=== PATIENT | male | born 2000 | race Caucasian/White ===

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

== ENCOUNTER 2022-06-10 02:15 | Inpatient (IN) | payer OTHER ==
[~2022-06-10] VITALS: Ht 188 cm; Wt 72.0 kg
[2022-06-10] MEDS ORDERED: SODIUM CHLORIDE 0.9% 1,000 ML IV ONE (03:15)
[2022-06-10] MEDS ORDERED: LACTATED RINGER'S 2,000 ML IV ONE (03:15)
[2022-06-10 03:24] LABS: Mean Corpuscular Volume 98.7 fL (80.0-100.0)
[2022-06-10 03:26] LABS: Hematocrit 56.7 % (41.0-53.0); Hemoglobin 17.1 g/dL (13.5-17.5); Mean Corpuscular Hemoglobin 29.8 pg (28.0-32.0); Mean Corpuscular Hgb Conc. 30.2 g/dL (32.0-36.0); Red Blood Cells 5.74 10^6/uL (4.5-5.90); Red Cell Distribution Width 14.3 % (11.8-14.3)
[2022-06-10 03:29] LABS: White Blood Cell 41.2 10^3/uL (4.4-10.8)
[2022-06-10 03:30] LABS: Basophils % (manual) 0 (0.0-2.0); Blast Cells 0; Promyelocytes % 0; Reactive Lymphocytes 0
[2022-06-10] MEDS ORDERED: ONDANSETRON HCL 4 MG/2 ML VIAL IV ONE (03:30)
[2022-06-10] MEDS ORDERED: MORPHINE SULFATE 4 MG/ML SYR/VIAL IV ONE (03:30)
[2022-06-10 03:41] LABS: Albumin 4.8 g/dL (3.4-5.0); Calcium 9.4 mg/dL (8.5-10.1)
[2022-06-10 03:43] LABS: Bilirubin, Total 1.5 mg/dL (0.2-1.0); Total Protein 8.9 g/dL (6.4-8.2)
[2022-06-10 03:44] LABS: BUN/Creatinine Ratio 15.1; Potassium 6.1 mmol/L (3.5-5.1)
[2022-06-10 03:52] LABS: Band Neutrophils % (manual) 15; Eosinophils % (manual) 1 (0-7); Lymphocytes % (manual) 11 (10.0-50.0); Metamyelocytes % 1; Monocytes % (manual) 2 (0-12); Myelocytes % 4
[2022-06-10] MEDS ORDERED: InsuLIN REG 1unit/0.01ml Soln (100units/ml) ONE (04:04)
[2022-06-10] MEDS ORDERED: SODIUM BICARBONATE 8.4 % INJ 50ML VIAL IV ONE ×3 (04:15→09:15)
[2022-06-10] MEDS ORDERED: InsuLIN REG 1unit/0.01ml Soln (100units/ml) IV ONE (04:15)
[2022-06-10] MEDS ORDERED: INSULIN LANTUS (GLARGINE) 1 /0.01ml (100units/ml) SC ONE (04:15)
[2022-06-10] MEDS ORDERED: InsuLIN R (HUMAN) 100 UNITS in SODIUM CHL 0.9% 99 ML IV SCH ×2 (04:15→07:45)
[2022-06-10] MEDS ORDERED: DEXTROSE (50%) 50ML SYRG IV PRN ×3 (04:15→20:30)
[2022-06-10 04:23] LABS: Urine Bacteria NONE SEEN /hpf (None Seen); Urine Blood Negative /uL (Negative); Urine Mucus FEW (None Seen); Urine Specific Gravity 1.023 (1.001-1.035); Urine WBC <1 /hpf (0 - 3)
[2022-06-10] MEDS ORDERED: ACCU-CHEK COMFORT CURVE STRIP VI SCH (04:30)
[2022-06-10] MEDS ORDERED: CALCIUM GLUC 1,000mg/50ml-NS 50 ML IV ONE (04:45)
[2022-06-10] MEDS ORDERED: ONDANSETRON HCL 4 MG/2 ML VIAL IV PRN (05:15)
[2022-06-10] MEDS ORDERED: SODIUM CHLORIDE 0.9% 1,000 ML IV SCH (05:15)
[2022-06-10] MEDS ORDERED: DOCUSATE SOD 100 MG CAP PO PRN (05:15)
[2022-06-10] MEDS ORDERED: HYDROcodone-ACET 5/325MG TAB PO PRN (05:15)
[2022-06-10] MEDS: SODIUM CHLORIDE 0.9% 1,000 ML IV SCH ×2 (05:45→07:49)
[2022-06-10] MEDS: ACCU-CHEK COMFORT CURVE STRIP VI SCH ×11 (06:04→22:15)
[2022-06-10 06:27] LABS: BUN/Creatinine Ratio 16.8; Calcium 9.2 mg/dL (8.5-10.1)
[2022-06-10] MEDS ORDERED: NITROGLYCERIN 0.4 MG SL TAB SL PRN (07:00)
[2022-06-10] MEDS ORDERED: MORPHINE SULFATE INJ 2 MG/ml SYRG IV PRN (07:00)
[2022-06-10] MEDS ORDERED: cefTRIAXone 1GM/50ML D5W 50 ML IV ONE (07:15)
[2022-06-10 07:21] LABS: Potassium 5.7 mmol/L (3.5-5.1)
[2022-06-10] MEDS ORDERED: SODIUM ZIRCONIUM CYCL 10 GM PAK PO ONE (07:30)
[2022-06-10] MEDS ORDERED: SODIUM BICARBONATE 50ML VIAL 75 ML in SOD CHL 0.45% 1,000 ML IV SCH (07:45)
[2022-06-10 08:33] LABS: Cholesterol 189 mg/dL (< 200); Triglycerides 147 mg/dL (< 150)
[2022-06-10 08:34] LABS: HDL Cholesterol 58 mg/dL (40-59); LDL Cholesterol 115 mg/dL (< 100)
[2022-06-10] MEDS: ASPirin 81 mg TAB PO SCH (10:00)
[2022-06-10 11:23] LABS: Urine Bacteria NONE SEEN /hpf (None Seen); Urine Blood Negative /uL (Negative); Urine Specific Gravity 1.022 (1.001-1.035); Urine WBC <1 /hpf (0 - 3)
[2022-06-10 11:27] LABS: Calcium 8.3 mg/dL (8.5-10.1); Potassium 4.3 mmol/L (3.5-5.1)
[2022-06-10 11:31] LABS: BUN/Creatinine Ratio 15.2
[2022-06-10] MEDS: ACETAMINOPHEN 325 MG TAB PO PRN (14:28)
[2022-06-10] MEDS ORDERED: D5W/SOD CHL 0.45% 1,000 ML IV SCH (15:30)
[2022-06-10 17:58] LABS: BUN/Creatinine Ratio 16.7; Calcium 7.9 mg/dL (8.5-10.1); Potassium 3.7 mmol/L (3.5-5.1)
[2022-06-10] MEDS ORDERED: POTASSIUM EFFERVESENT TAB 25 MEQ PO ONE (19:15)
[2022-06-10] MEDS ORDERED: DEXTROSE (50%) 50ML SYRG IV ONE (20:15)
[2022-06-10] MEDS: InsuLIN REG 1unit/0.01ml Soln (100units/ml) SC SCH (22:16)
[2022-06-10 23:00] LABS: BUN/Creatinine Ratio 15.8; Calcium 7.9 mg/dL (8.5-10.1)
[2022-06-11] MEDS: ACCU-CHEK COMFORT CURVE STRIP VI SCH ×6 (02:36→22:46)
[2022-06-11] MEDS: InsuLIN REG 1unit/0.01ml Soln (100units/ml) SC SCH ×6 (02:37→22:00)
[2022-06-11 06:03] LABS: Calcium 8.2 mg/dL (8.5-10.1); Potassium 3.6 mmol/L (3.5-5.1)
[2022-06-11 06:08] LABS: Albumin 3.4 g/dL (3.4-5.0); BUN/Creatinine Ratio 12.4; Bilirubin, Total 1.4 mg/dL (0.2-1.0); Total Protein 5.8 g/dL (6.4-8.2)
[2022-06-11 07:33] LABS: Basophils # (auto) 0 10 ^3/uL (0-0.2); Basophils % (auto) 0.4 % (0.0-2.0); Eosinophils # (auto) 0.1 10 ^3/uL (0-0.8); Eosinophils % (auto) 0.6 % (0.0-7.0); Hematocrit 39.9 % (41.0-53.0); Hemoglobin 13.5 g/dL (13.5-17.5); Lymphocytes % (auto) 18.4 % (10.0-50.0); Mean Corpuscular Hemoglobin 30.7 pg (28.0-32.0); Mean Corpuscular Hgb Conc. 33.8 g/dL (32.0-36.0); Mean Corpuscular Volume 90.8 fL (80.0-100.0); Monocytes # (auto) 0.5 10 ^3/uL (0-1.3); Monocytes % (auto) 4.6 % (0.0-12.0); Neutrophils # (auto) 8.2 10 ^3/uL (1.6-8.6); Nucleated Red Blood Cells % 0.2 %; Red Cell Distribution Width 13.4 % (11.8-14.3); White Blood Cell 10.8 10^3/uL (4.4-10.8)
[2022-06-11] MEDS: cefTRIAXone 1GM/50ML D5W 50 ML IV SCH ×2 (09:00→09:06)
[2022-06-11] MEDS: ASPirin 81 mg TAB PO SCH (09:57)
[2022-06-11] MEDS: INSULIN LANTUS (GLARGINE) 1 /0.01ml (100units/ml) SC SCH (10:00)
[2022-06-11 13:00] VITALS: BP 126/71
[2022-06-11 17:00] VITALS: BP 97/54
[2022-06-11] MEDS: ACETAMINOPHEN 325 MG TAB PO PRN (19:04)
[2022-06-11 20:00] VITALS: BP 99/54
[2022-06-11 22:00] VITALS: BP 99/54
[2022-06-12] MEDS: ACCU-CHEK COMFORT CURVE STRIP VI SCH ×3 (01:57→10:00)
[2022-06-12] MEDS: InsuLIN REG 1unit/0.01ml Soln (100units/ml) SC SCH ×3 (01:57→10:00)
[2022-06-12 05:00] VITALS: BP 118/79
[2022-06-12 09:00] VITALS: BP 121/77
[2022-06-12] MEDS: cefTRIAXone 1GM/50ML D5W 50 ML IV SCH (09:00)
[2022-06-12] MEDS: INSULIN LANTUS (GLARGINE) 1 /0.01ml (100units/ml) SC SCH (10:00)
[2022-06-12] MEDS: ASPirin 81 mg TAB PO SCH (10:00)
[2022-06-12 10:43] VITALS: BP 121/77
== END 2022-06-12 11:20 | disposition home or self-care (01) | DRG 638 ==
LOC: ER 02:15 → EDUNIT# 02:15 → EDBD 02:15 → TELE 06:54 → WEST WING 06-11 12:41
PROVIDERS: ADMIT Nurse Practitioner Family; ATTEND Internal Medicine
DX: E10.10 Type 1 diabetes mellitus with ketoacidosis without coma (principal); E87.1 Hypo-osmolality and hyponatremia; N17.9 Acute kidney failure, unspecified; D72.829 Elevated white blood cell count, unspecified; D75.839 Thrombocytosis, unspecified; Z20.822 Contact with and (suspected) exposure to COVID-19; E87.5 Hyperkalemia; I10 Essential (primary) hypertension; Z79.4 Long term (current) use of insulin
CPT/HCPCS: 36415; 36600; 71045; 80048; 80053; 80061; 81001; 82010; 82805; 82962; 83036; 83605; 84132; 85007; 85027; 87040; 87426; 87804; 93005; 96361; 96365; 96375; G0378; J0696; J1815; J2405

== ENCOUNTER 2023-03-27 02:50 | Inpatient (IN) | payer OTHER ==
[~2023-03-27] VITALS: Ht 188 cm; Wt 73.1 kg
[2023-03-27] MEDS ORDERED: SODIUM CHLORIDE 0.9% 3,000 ML IV ONE (03:45)
[2023-03-27 04:24] LABS: Hematocrit 55.8 % (41.0-53.0); Hemoglobin 17.6 g/dL (13.5-17.5); Mean Corpuscular Hemoglobin 30.2 pg (28.0-32.0); Mean Corpuscular Hgb Conc. 31.6 g/dL (32.0-36.0); Mean Corpuscular Volume 95.7 fL (80.0-100.0); Red Blood Cells 5.83 10^6/uL (4.5-5.90); Red Cell Distribution Width 13.5 % (11.8-14.3)
[2023-03-27 04:35] LABS: Basophils % (manual) 0 (0.0-2.0); Blast Cells 0; Eosinophils % (manual) 0 (0-7); Metamyelocytes % 0; Promyelocytes % 0; Reactive Lymphocytes 0
[2023-03-27 04:41] LABS: Alanine Aminotransferase 24 U/L (7-40); Albumin 5.8 g/dL (3.2-4.8); Alkaline Phosphatase 190 U/L (46-116); Anion Gap 23.00001 (5-15); Aspartate Aminotransferase 22 U/L (13-40); BUN/Creatinine Ratio 6.2 (10.0-20.0); Blood Urea Nitrogen 13 mg/dL (9-23); Calcium 9.5 mg/dL (8.7-10.4); Chloride 91 mmol/L (98-107); Lipase 24 U/L (12-53); Magnesium 2.7 mg/dL (1.6-2.6); Potassium 5.5 mmol/L (3.5-5.1); Sodium 124 mmol/L (136-145)
[2023-03-27 04:42] LABS: Bilirubin, Total 1.3 mg/dL (0.2-1.0); Total Protein 9.1 g/dL (5.7-8.2)
[2023-03-27] MEDS ORDERED: HYDROmorphone HCL 2 MG/ML VL/or syr IV ONE (04:45)
[2023-03-27] MEDS ORDERED: ONDANSETRON HCL 4 MG/2 ML VIAL IV ONE (04:45)
[2023-03-27 05:07] LABS: Carbon Dioxide < 10 mmol/L (20-30); Glucose 602 mg/dL (74-106)
[2023-03-27] MEDS ORDERED: INSULIN DRIP 100 UNIT/100ML 100 ML IV SCH ×3 (05:15→10:00)
[2023-03-27] MEDS ORDERED: SODIUM BICARBONATE 8.4 % INJ 50ML VIAL IV ONE ×2 (05:15→05:45)
[2023-03-27] MEDS ORDERED: INSULIN LANTUS (GLARGINE) 1 /0.01ml (100units/ml) SC ONE ×3 (05:15→10:00)
[2023-03-27] MEDS ORDERED: DEXTROSE (50%) 50ML SYRG IV PRN ×3 (05:15→10:00)
[2023-03-27 05:20] LABS: Band Neutrophils % (manual) 8; Lymphocytes % (manual) 10 (10.0-50.0); Monocytes % (manual) 5 (0-12); Myelocytes % 2
[2023-03-27 05:21] LABS: Platelet Estimate Increased; RBC Morphology Normal
[2023-03-27 05:30] VITALS: PULSE 116; RESP 33; O2SAT 100
[2023-03-27] MEDS ORDERED: CALCIUM GLUC 1,000mg/50ml-NS 50 ML IV ONE (05:45)
[2023-03-27] MEDS ORDERED: InsuLIN REG 1unit/0.01ml Soln (100units/ml) IV ONE (05:45)
[2023-03-27] MEDS: ACCU-CHEK COMFORT CURVE STRIP VI SCH ×12 (06:17→22:21)
[2023-03-27 06:52] LABS: Urine Bacteria NONE SEEN /hpf (None Seen); Urine Blood TRACE /uL (Negative); Urine Clarity Clear (Clear); Urine Protein, UAD TRACE (Negative); Urine Specific Gravity 1.022 (1.001-1.035); Urine Urobilinogen Normal (Negative); Urine WBC <1 /hpf (0 - 3)
[2023-03-27 06:55] LABS: Urine Color Straw (Yellow)
[2023-03-27] MEDS ORDERED: POTASSIUM CHL 20MEQ/100ML 200 ML IV PRN (08:00)
[2023-03-27] MEDS ORDERED: METOCLOPRAMIDE HCL 5MG/ml INJ 2ml VIAL IV PRN (08:15)
[2023-03-27] MEDS ORDERED: ACETAMINOPHEN 325 MG TAB PO PRN (08:15)
[2023-03-27] MEDS ORDERED: NITROGLYCERIN 0.4 MG SL TAB SL PRN (08:15)
[2023-03-27] MEDS ORDERED: MORPHINE SULFATE INJ 2 MG/ml SYRG IV PRN ×2 (08:15)
[2023-03-27 08:34] LABS: Chloride 103 mmol/L (98-107); Potassium 4.7 mmol/L (3.5-5.1)
[2023-03-27 08:35] LABS: Anion Gap 17 (5-15); Carbon Dioxide 13 mmol/L (20-30)
[2023-03-27 08:36] LABS: Calcium 8.8 mg/dL (8.5-10.1)
[2023-03-27 08:40] LABS: BUN/Creatinine Ratio 9.4 (10.0-20.0); Blood Urea Nitrogen 13 mg/dL (9-23)
[2023-03-27 08:42] LABS: Glucose 281 mg/dL (74-106); Sodium 133 mmol/L (136-145)
[2023-03-27] MEDS: SODIUM CHLORIDE 0.9% 1,000 ML IV SCH ×4 (09:32→20:40)
[2023-03-27] MEDS: levoFLOXacin 750MG 150 ML IV SCH (09:32)
[2023-03-27 09:41] VITALS: PULSE 102; RESP 20; O2SAT 98
[2023-03-27] MEDS ORDERED: SODIUM CHLORIDE 0.9% 1,000 ML IV SCH ×4 (10:00→16:00)
[2023-03-27] MEDS ORDERED: ACCU-CHEK COMFORT CURVE STRIP VI SCH (10:30)
[2023-03-27 10:56] LABS: Base Excess -13.1 mmol/L (-2.0-2.0)
[2023-03-27 11:07] LABS: Hemoglobin 15.9 g/dL (13.5-17.5); Mean Corpuscular Hgb Conc. 33.1 g/dL (32.0-36.0); Mean Corpuscular Volume 90.9 fL (80.0-100.0); Red Blood Cells 5.28 10^6/uL (4.5-5.90); Red Cell Distribution Width 12.8 % (11.8-14.3); White Blood Cell 25.6 10^3/uL (4.4-10.8)
[2023-03-27 11:11] LABS: Basophils % (manual) 0 (0.0-2.0); Blast Cells 0; Eosinophils % (manual) 0 (0-7); Metamyelocytes % 0; Myelocytes % 0; Promyelocytes % 0; Reactive Lymphocytes 0
[2023-03-27 11:20] LABS: Amphetamine Screen, Urine Neg (NEGATIVE); Barbiturate Scree,Urine Neg (NEGATIVE); Benzodiazephine Screen, Urine Neg (NEGATIVE); Cannabinoid Screen, Urine Pos (NEGATIVE); Cocaine Screen, Urine Neg (NEGATIVE); Opiate Scree,Urine Neg (NEGATIVE); Phencyclidine Screen, Urine Neg (NEGATIVE)
[2023-03-27 11:26] LABS: Magnesium 2.1 mg/dL (1.6-2.6)
[2023-03-27 11:28] LABS: Phosphorus 3.3 mg/dL (2.4-5.1)
[2023-03-27 11:35] LABS: Band Neutrophils % (manual) 11; Lymphocytes % (manual) 12 (10.0-50.0); Monocytes % (manual) 10 (0-12); Platelet Estimate Adequate
[2023-03-27] MEDS: D5W/SOD CHL 0.45% 1,000 ML IV SCH ×4 (13:03→22:00)
[2023-03-27 13:45] LABS: Chloride 107 mmol/L (98-107); Potassium 4.3 mmol/L (3.5-5.1); Sodium 132 mmol/L (136-145)
[2023-03-27 13:46] LABS: Anion Gap 10 (5-15); Carbon Dioxide 15 mmol/L (20-30)
[2023-03-27 13:47] LABS: Calcium 8.2 mg/dL (8.7-10.4)
[2023-03-27 13:52] LABS: BUN/Creatinine Ratio 9.5 (10.0-20.0); Blood Urea Nitrogen 10 mg/dL (9-23)
[2023-03-27 14:01] LABS: Glucose 150 mg/dL (74-106)
[2023-03-27 17:12] LABS: Chloride 102 mmol/L (98-107); Potassium 4.1 mmol/L (3.5-5.1); Sodium 133 mmol/L (136-145)
[2023-03-27 17:13] LABS: Anion Gap 16 (5-15); Carbon Dioxide 15 mmol/L (20-30)
[2023-03-27 17:14] LABS: Calcium 8.6 mg/dL (8.5-10.1)
[2023-03-27 17:18] LABS: Glucose 232 mg/dL (74-106)
[2023-03-27 17:19] LABS: BUN/Creatinine Ratio 6.3 (10.0-20.0); Blood Urea Nitrogen 7 mg/dL (9-23)
[2023-03-27 19:40] VITALS: PULSE 85; RESP 15; O2SAT 99
[2023-03-27] MEDS ORDERED: PIPERACILLIN-TAZOB 3.375GM 100 ML IV ONE (21:00)
[2023-03-28 00:36] LABS: Chloride 106 mmol/L (98-107); Potassium 3.5 mmol/L (3.5-5.1); Sodium 135 mmol/L (136-145)
[2023-03-28 00:37] LABS: Anion Gap 14 (5-15); Carbon Dioxide 15 mmol/L (20-30)
[2023-03-28 00:38] LABS: Calcium 8.5 mg/dL (8.7-10.4)
[2023-03-28 00:42] LABS: BUN/Creatinine Ratio 5.1 (10.0-20.0); Blood Urea Nitrogen 5 mg/dL (9-23)
[2023-03-28 00:46] LABS: Glucose 124 mg/dL (74-106)
[2023-03-28] MEDS: ACCU-CHEK COMFORT CURVE STRIP VI SCH ×9 (01:30→19:47)
[2023-03-28] MEDS: D5W/SOD CHL 0.45% 1,000 ML IV SCH ×2 (02:46→06:00)
[2023-03-28] MEDS: SODIUM CHLORIDE 0.9% 1,000 ML IV SCH (05:45)
[2023-03-28 05:58] LABS: Anion Gap 14 (5-15); Carbon Dioxide 16 mmol/L (20-30); Chloride 105 mmol/L (98-107); Potassium 3.4 mmol/L (3.5-5.1); Sodium 135 mmol/L (136-145)
[2023-03-28 06:00] LABS: Calcium 8.5 mg/dL (8.7-10.4)
[2023-03-28 06:04] LABS: BUN/Creatinine Ratio 5.7 (10.0-20.0); Blood Urea Nitrogen 6 mg/dL (9-23); Glucose 197 mg/dL (74-106)
[2023-03-28] MEDS ORDERED: DEXTROSE (50%) 50ML SYRG IV PRN (06:30)
[2023-03-28] MEDS ORDERED: SOD CHL 0.9%/ KCL 40MEQ 1,000 ML IV ONE (07:30)
[2023-03-28 08:00] VITALS: PULSE 85
[2023-03-28] MEDS: InsuLIN REG 1unit/0.01ml Soln (100units/ml) SC SCH ×4 (08:54→20:12)
[2023-03-28] MEDS ORDERED: INSULIN LANTUS (GLARGINE) 1 /0.01ml (100units/ml) SC SCH ×2 (10:00)
[2023-03-28] MEDS: INSULIN LANTUS (GLARGINE) 1 /0.01ml (100units/ml) SC SCH (10:18)
[2023-03-28] MEDS: levoFLOXacin 750MG 150 ML IV SCH (10:18)
[2023-03-28 12:11] LABS: Basophils # (auto) 0 10 ^3/uL (0-0.2); Basophils % (auto) 0.5 % (0.0-2.0); Eosinophils # (auto) 0.1 10 ^3/uL (0-0.8); Eosinophils % (auto) 0.9 % (0.0-7.0); Hematocrit 39.7 % (41.0-53.0); Hemoglobin 13.5 g/dL (13.5-17.5); Lymphocytes % (auto) 20.2 % (10.0-50.0); Mean Corpuscular Hemoglobin 30.2 pg (28.0-32.0); Mean Corpuscular Volume 88.9 fL (80.0-100.0); Monocytes # (auto) 0.8 10 ^3/uL (0-1.3); Monocytes % (auto) 8.4 % (0.0-12.0); Red Blood Cells 4.46 10^6/uL (4.5-5.90); Red Cell Distribution Width 13.1 % (11.8-14.3)
[2023-03-28 12:20] VITALS: BP 109/62; PULSE 83; RESP 17; RESP 18; TEMP 98.8; O2SAT 97
[2023-03-28 12:25] LABS: Chloride 106 mmol/L (98-107); Potassium 3.6 mmol/L (3.5-5.1); Sodium 135 mmol/L (136-145)
[2023-03-28 12:26] LABS: Anion Gap 10 (5-15); Calcium 8.4 mg/dL (8.5-10.1); Carbon Dioxide 19 mmol/L (20-30)
[2023-03-28 12:31] LABS: BUN/Creatinine Ratio 10.5 (10.0-20.0); Blood Urea Nitrogen 10 mg/dL (9-23); Glucose 281 mg/dL (74-106)
[2023-03-28] MEDS: HYDROcodone-ACET 5/325MG TAB PO PRN ×2 (14:33→20:12)
[2023-03-28] MEDS ORDERED: AMOXICILLIN TRIHYDRATE 250 MG CAP PO ONE (15:30)
[2023-03-28 17:00] VITALS: BP 132/78; PULSE 97; RESP 17; TEMP 99.2; O2SAT 97
[2023-03-28 20:00] VITALS: PULSE 97
[2023-03-28] MEDS: AMOXICILLIN TRIHYDRATE 250 MG CAP PO SCH (21:25)
[2023-03-28 22:00] VITALS: BP 119/64; PULSE 80; RESP 17; TEMP 98.5; O2SAT 98
[2023-03-29] MEDS: ACCU-CHEK COMFORT CURVE STRIP VI SCH ×4 (00:17→11:04)
[2023-03-29] MEDS: InsuLIN REG 1unit/0.01ml Soln (100units/ml) SC SCH ×4 (00:20→11:10)
[2023-03-29 05:00] VITALS: BP 102/52; PULSE 63; RESP 17; TEMP 97.5; O2SAT 99
[2023-03-29] MEDS: HYDROcodone-ACET 5/325MG TAB PO PRN ×2 (05:40→11:04)
[2023-03-29] MEDS: AMOXICILLIN TRIHYDRATE 250 MG CAP PO SCH ×2 (05:40→14:11)
[2023-03-29 08:00] VITALS: PULSE 82; PULSE 85; RESP 17; O2SAT 100
[2023-03-29] MEDS ORDERED: INS7030I SC (10:09)
[2023-03-29] MEDS ORDERED: AMOX500T86 PO (10:11)
[2023-03-29] MEDS: INSULIN LANTUS (GLARGINE) 1 /0.01ml (100units/ml) SC SCH (10:12)
[2023-03-29 12:50] VITALS: BP 128/85; PULSE 87; RESP 18; TEMP 98.1; O2SAT 99
[2023-03-29 13:08] VITALS: BP 128/85; PULSE 87; RESP 18; TEMP 98.1; O2SAT 99
== END 2023-03-29 14:18 | disposition home or self-care (01) | DRG 871 ==
LOC: ER 02:50 → OVERFLOW 08:04 → TELE-CENTR 03-28 11:24
PROVIDERS: ADMIT Internal Medicine; ATTEND Internal Medicine
DX: A41.9 Sepsis, unspecified organism (principal); E10.10 Type 1 diabetes mellitus with ketoacidosis without coma; N17.0 Acute kidney failure with tubular necrosis; E87.1 Hypo-osmolality and hyponatremia; E86.0 Dehydration; E87.5 Hyperkalemia; K82.4 Cholesterolosis of gallbladder
CPT/HCPCS: 36415; 36600; 71045; 76700; 80048; 80053; 80307; 81001; 82010; 82805; 82962; 83036; 83690; 83735; 83930; 84100; 84484; 85007; 85025; 85027; 87040; 87086; 93005; 96361; 96365; 96368; 96372; 96375; 99291; G0378; J1815; J1956; J2405; J2543